=== PATIENT | male | born 1985 | race Caucasian/White ===

== ENCOUNTER 2017-01-10 11:52 | Emergency (ER) | payer OTHER ==
[~2017-01-10] VITALS: Ht 167.6 cm; Wt 72.0 kg
[2017-01-10 11:59] VITALS: Ht 167.6 cm; Wt 72.0 kg
[2017-01-10] MEDS ORDERED: TETRACAINE 0.5% 4 ML OPH LEFT EYE ONE (12:30)
[2017-01-10] MEDS ORDERED: FLUORESCEIN STRIP LEFT EYE ONE (12:30)
[2017-01-10] MEDS ORDERED: IBUP400T22 PO (13:16)
[2017-01-10] MEDS ORDERED: ERYT1OIN6 LEFT EYE (13:16)
--- NOTE | 2017-01-10 13:37 | ERD ---
ER Documentation Chief Complaint Date/Time DATE: 01/10/17 TIME: 13:30 Chief Complaint left eye pain/redness since yesterday HPI This is a 31-year-old male presenting to emergency department with left eye pain and redness since yesterday. Patient states he was cleaning his house with a vacuum and believes something got into his eye. Patient states he feels a foreign body sensation and has pain with blinking. Patient denies wearing contact lenses. States he uses glasses for working. Patient has had a large amount of clear drainage from left eye. No purulent drainage. No fevers or chills. No vision changes, blurry vision or loss of vision. No diplopia, halos around lights or curtain coming down over eye sensation. No swelling. ROS All systems reviewed and are negative except as per history of present illness. Medications Home Meds Active Scripts Ibuprofen* (Motrin*) 400 Mg Tab, 400 MG PO Q6, #10 TAB Prov:CHARLA SYED NP 01/10/17 Erythromycin (Erythromycin Opth) 3.5 Gm Oint..gm., 1 APPLIC LEFT EYE QID for 7 Days, #1 Prov:CHARLA SYED NP 01/10/17 Allergies Allergies: Coded Allergies: No Known Allergy (Unverified , 01/10/17) PMhx/Soc Medical and Surgical Hx: pt denies Medical Hx, pt denies Surgical Hx Hx Alcohol Use: No Hx Substance Use: No Smoking Status: Never smoker Physical Exam Vitals Vital Signs Date Time Temp Pulse Resp B/P Pulse Ox O2 Delivery O2 Flow Rate FiO2 01/10/17 11:59 98.2 74 19 129/82 99 Physical Exam Const: No acute distress, alert Head: Atraumatic Eyes: Erythema to left conjunctiva, no obvious foreign body, no drainage, PERRL ENT: Normal External Ears, Nose and Mouth. Neck: Full range of motion..~ No meningismus. Resp: Clear to auscultation bilaterally Cardio: Regular rate and rhythm, no murmurs Abd: Soft, non tender, non distended. Normal bowel sounds Skin: No petechiae or rashes Back: No midline or flank tenderness Ext: No cyanosis, or edema Neur: Awake and alert Psych: Normal Mood and Affect Results 24 hrs Current Medications Medications (Trade) Dose Ordered Sig/Abdullahi Route PRN Reason Start Time Stop Time Status Last Admin Dose Admin Tetracaine HCl (Tetracaine 0.5% Steri-Unit Nasrin) 1 drop ONCE ONCE LEFT EYE 01/10/17 12:30 01/10/17 12:31 DC Fluorescein Sodium (Mdrec-E-Tjcts) 1 strip ONCE ONCE LEFT EYE 01/10/17 12:30 01/10/17 12:31 DC Procedures/MDM MDM: This is a 31-year-old male presenting to emergency department with left eye pain and redness since yesterday after possible foreign body. Patient states he was vacuuming when he felt a sensation of something in his left eye. Verbal consent obtained for eye exam and procedure. One drop of tetracaine 0.5 % ophthalmic solution placed in left eye. A fluorescein strip was placed to left eye and details of Leroy lamp examination below. Eye Exam w/ Wood's lamp: Visual Acuity: 20/25 left, 20/200 right, 20/20 bilateral Visual Hill: Intact in all four quadrants bilaterally Lac ducts/glands: No swelling Lids w/ evertion: Normal, no foreign body Conj/[place]: small 1mm corneal abrasion to left iris at 4:00 region Anterior Chamber: Clear Tonopen readings: N/A Retina exam: No obvious abnormality Patient is appropriate for outpatient management will be given prescription for erythromycin ointment and ibuprofen. Instructed patient to follow-up with [facility] in the next 24-48 hours for reassessment and additional management. Resources for [facility] given with discharge paperwork. Return to ED for any high fever, chest pain, difficulty breathing, shortness breath, wheezing, vomiting, diarrhea, abdominal pain or any new or worsening symptoms. Patient verbalizes understanding. All questions answered at discharge. [place] translation used during this encounter. Departure Diagnosis: Primary Impression: Conjunctivitis Conjunctivitis type: acute Acute conjunctivitis type: unspecified Laterality: left Qualified Code: H10.32 - Acute conjunctivitis of left eye, unspecified acute conjunctivitis type Condition: Stable Patient Instructions: Conjunctivitis Caused by Irritation Ref[facility] Usted se whitney hecho un examen mdico de control que le indica que no est en olivia condicin que requiera tratamiento urgente en el Departamento de Emergencia. Un estudio ms profundo y el tratamiento de morgan condicin pueden esperar sin ningn riesgo hasta que usted sea atendida/o en el consultorio de morgan mdico o olivia cl wen. Es responsabilidad suya arreglar olivia catina para el seguimiento del jignesh. MANEJO DE CONDICIONES NO URGENTES EN EL FUTURO 1) Si usted tiene un mdico de atencin primaria: Usted debera llamar a morgan mdico de atencin primaria antes de venir al departamento de emergencia. Despus de las horas de consultorio, morgan doctor o morgan asociado/a est disponible por telfono. El mdico o enfermero de beto en el servicio telefnico puede asesorarle por soto medio para atender el problema, o jignesh contrario se puede programar olivia catina. 2) Si usted no tiene un mdico de atencin primaria: Llame al mdico o clnica de referencia que aparece abajo yanna las horas de consultorio para hacer olivia catina para que le vean. CLINICAS: [facility] [phone] [facility] [facility] 250 [phone] [facility] [facility] [phone] [address] [facility]. [place] [id number] [phone] [facility] [place] [address] [phone] [facility]. [phone] [address] [facility]. [facility] () Usted se whitney hecho un examen mdico de control que le indica que no est en olivia condicin que requiera tratamiento urgente en el Departamento de Emergencia. Un estudio ms profundo y el tratamiento de morgan condicin pueden esperar sin ningn riesgo hasta que usted sea atendida/o en el consultorio de morgan mdico o olivia cl wen. Es responsabilidad suya arreglar olivia catina para el seguimiento del jignesh. MANEJO DE CONDICIONES NO URGENTES EN EL FUTURO 1) Si usted tiene un mdico de atencin primaria: Usted debera llamar a morgan mdico de atencin primaria antes de venir al departamento de emergencia. Despus de las horas de consultorio, morgan doctor o morgan asociado/a est disponible por telfono. El mdico o enfermero de beto en el servicio telefnico puede asesorarle por soto medio para atender el problema, o jignesh contrario se puede programar olivia catina. 2) Si usted no tiene un mdico de atencin primaria: Llame al mdico o condado institucions de referencia que aparece abajo yanna las horas de consultorio para hacer olivia catina para que le vean. SI USTED NO PUEDE PAGAR PARA SHEFALI UN MEDICO puede ir a: [facility] [address] [place] [address] [facility] [address] [place] [address] [facility] [address] [place] [address] PARA [facility] [address] [place], [place] [id number] [facility] Hours: Mon - Fri 9:00 AM - 5:00 PM Additional Instructions: Seguimiento con un oftalmlogo hendricks pronto romario sea posible. Llame al doctor MAANA y paulina olivia CATINA PARA DENTRO DE 2-3 TRINH.Dgale a la secretaria que nosotros le instruimos hacer esta catina.Avise o llame si morgan condicin se empeora antes de la catina. Regresa aqui si peor o no mejor. Regresar a ED por fiebre leander, dolor en el pecho, dificultad para respirar, respiracin entrecortada, sibilancias, vmitos, diarrea, dolor abdominal o cualquier sntoma nuevo o que empeora. CHARLA SYED NP Jan 10, 2017 13:37
== END 2017-01-10 13:31 | disposition home or self-care (01) ==
LOC: FTE 11:52
DX: H10.32 Unspecified acute conjunctivitis, left eye (principal)
CPT/HCPCS: 99283